=== PATIENT | male | born 1975 | race Caucasian/White ===

== ENCOUNTER 2018-11-22 09:43 | Day surgery (SDC) | END 2018-11-22 15:45 | disposition home or self-care (01) ==

== ENCOUNTER 2019-01-15 09:26 | Inpatient (IN) | payer OTHER ==
[~2019-01-15] VITALS: Ht 172.7 cm; Wt 71.6 kg
[2019-01-15] VITALS (28 sets, daily range): BP systolic 119–162; BP diastolic 63–86; PULSE 62–114; RESP 15–21; Ht 172.7 cm; Wt 71.6 kg
[~2019-01-15 09:26] MED LIST: LACT1CAP17 PO
[2019-01-15] MEDS ORDERED: CEFAZOLIN 2 GM/50 ML (PMX) 50 ML IVPB ONE (09:30)
[2019-01-15] MEDS ORDERED: SOD CHLORIDE 0.9% 1,000 ML IV ONE (09:30)
[2019-01-15] MEDS ORDERED: BUPIVACAINE 0.5%/EPI (SDV) 30 ML INJ ONE (10:12)
[2019-01-15] MEDS ORDERED: PROPOFOL 20 ML ONE (10:37)
[2019-01-15] MEDS ORDERED: MIDAZOLAM 1 MG/ML 2 ML INJ ONE (10:37)
[2019-01-15] MEDS ORDERED: SUCCINYLCHOLINE CHLORIDE 100 MG/5 ML SYG IV ONE (10:37)
[2019-01-15] MEDS ORDERED: ROCURONIUM 50 MG INJ ONE (10:37)
[2019-01-15] MEDS ORDERED: LIDOCAINE 100 MG SYRINGE ONE ×4 (10:37→16:11)
[2019-01-15] MEDS ORDERED: METOCLOPRAMIDE 10 MG INJ ONE (10:38)
[2019-01-15] MEDS ORDERED: ONDANSETRON 4 MG INJ ONE (10:38)
--- NOTE | 2019-01-15 10:43 | HPN ---
Date/Time of Note Date/Time of Note DATE: 01/15/19 TIME: 10:43 Interval H&P Admission Note Pt. seen H&P reviewed: No system changes JAVY PERRY MD Jan 15, 2019 10:43
[2019-01-15] MEDS ORDERED: AMPICILLIN/SULB 3 GM/NS (PMX) 100 ML IVPB ONE (12:30)
[2019-01-15] MEDS ORDERED: ONDANSETRON 4 MG INJ IV PRN ×2 (13:00→15:00)
[2019-01-15] MEDS ORDERED: HYDROmorphONE 1 MG/5 ML IV SYRINGE IV PRN (13:00)
[2019-01-15] MEDS ORDERED: DIPHENHYDRAMINE 50 MG INJ IV PRN (13:00)
[2019-01-15] MEDS ORDERED: METOCLOPRAMIDE 10 MG INJ IV PRN (13:00)
[2019-01-15] MEDS ORDERED: morphine (1 MG/ML) 10ML SYRINGE IV PRN (13:00)
[2019-01-15] MEDS ORDERED: LORAZEPAM 2 MG INJ IV PRN (13:00)
[2019-01-15] MEDS ORDERED: hydrALAzine 20 MG INJ IV PRN (13:00)
[2019-01-15] MEDS ORDERED: MEPERIDINE 25 MG INJ IV PRN (13:00)
[2019-01-15] MEDS ORDERED: LABETALOL HCL 20MG INJ IV PRN (13:00)
[2019-01-15] MEDS ORDERED: FENTAnyl 50 MCG/ML VIAL IV PRN (13:00)
--- NOTE | 2019-01-15 13:00 | PREAC ---
Date/Time of Note Date/Time of Note DATE: 01/15/19 TIME: 12:50 Anesthesia Eval and Record Evaluation Time Pre-Procedure Interview DATE: 01/15/19 TIME: 12:50 Age 43 Sex male NPO: 8 hrs Preoperative diagnosis [place]-vesicular fistula Planned procedure open sigmoid colon resection, lower pelvic anastomosis, colovesicular fistula takedown, possible diverting ostomy, rigid sigmoidoscopy Past Medical History Past Medical History: None Surgery & Anesthesia Issues No known issue Meds Anticoagulation: No Beta Joni within 24 hr: Yes Reason Beta Joni not given: Other Discontinued Scripts Lactobac Cmb #3/Fos/Pantethine (PROBIOTIC & ACIDOPHILUS CAP) 1 Each Capsule, 1 EACH PO DAILY, #30 CAP Prov:HUSSEIN DOUGLAS MD 12/20/15 Current Medications Sodium Chloride 1,000 ml @ 75 mls/hr [id number] ONCE IV Last administered on 01/15/19at 10:18; Admin Dose 75 MLS/HR; Start 01/15/19 at 09:30; Stop 01/15/19 at 22:49 Ampicillin Sodium/ Sulbactam Sodium 100 ml @ 100 mls/hr ONCE ONCE IVPB ; Start 01/15/19 at 12:30; Stop 01/15/19 at 13:29 Meds reviewed: Yes Allergies Coded Allergies: No Known Drug Allergies (Verified Allergy, Unknown, 01/15/19) Allergies Reviewed: Yes Labs/Studies Labs Reviewed: Reviewed by anesthesiologist test: N/A Studies: ECG, CXR Pre-procedure Exam Last vitals Vital Signs Date Temp Pulse Resp B/P (MAP) Pulse Ox O2 O2 Flow FiO2 Time Delivery Rate 01/15/19 98.2 79 16 120/68 98 Room Air 10:10 (85) Airway: Adequate mouth opening, Adequate thyromental dist Mallampati: Mallampati II Teeth: Normal Lung: Normal Heart: Normal ASA Physical Status ASA physical status: 3 Emergency: None Planned Anesthetic General/MAC: ETT, NG/OG Tube Neuraxial: Epidural Planned Pain Management Epidural Pre-operative Attestations Prior to commencing anesthesia and surgery, the patient was re-evaluated, there was verification of: *The patient's identity *The results of appropriate recent lab work and preoperative vital signs *The above evaluation not changing prior to induction *Anesthetic plan, risk benefits, alternative and complications discussed with patient/family; questions answered; patient/family understands, accepts and wishes to proceed. Sarika Lara Jan 15, 2019 13:00
[2019-01-15] MEDS ORDERED: NALOXONE (0.4 MG/ML) INJ IV PRN ×5 (13:30)
[2019-01-15] MEDS ORDERED: GLUCAGON 1 MG INJ ONE (13:33)
[2019-01-15] MEDS ORDERED: BUPIVACAINE 0.25% (MPF) 30 ML INJ ONE (14:08)
[2019-01-15] MEDS ORDERED: FENTAnyl 50 MCG/ML VIAL ONE (14:09)
[2019-01-15] MEDS ORDERED: LIDOCAINE 2% (SDV) 5 ML INJ ONE (14:24)
[2019-01-15] MEDS ORDERED: AMPICILLIN/SULB 3 GM/NS (PMX) 100 ML IVPB SCH ×2 (15:00→18:00)
[2019-01-15] MEDS ORDERED: ACETAMINOPHEN 325 MG TAB PO PRN (15:00)
--- NOTE | 2019-01-15 15:03 | OPR ---
Date/Time of Note Date/Time of Note DATE: 01/15/19 TIME: 14:47 Operative Report Procedure Date: Jan 15, 2019 Preoperative Diagnosis 1. Colovesicular fistula 2. Chronic sigmoid colon diverticulitis Postoperative Diagnosis 1. Colovesicular fistula 2. Chronic sigmoid colon diverticulitis Operation/Procedure Performed 1. Sigmoid colon resection with low pelvic anastomosis 2. Takedown of colovesicular fistula 3. Placement of drain 4. Rigid sigmoidoscopy Surgeon see signature line Vice President For Instruction Aris Smith MD Anesthesia Type: general Anesthesiologist: Sarika Lara Estimated Blood Loss: 50 - 100 ml's Transfusion none Specimen 1. Sigmoid colon 2. Anastomotic donuts Grafts/Implants none Tubes/Drains 19 Japanese round [place] drain Complications none Pt Condition Post Procedure: stable Indications The patient is a 43-year-old male who presented to the office with main complaints of dysuria and fecaluria. The patient had clinical signs and symptoms of chronic diverticulitis with colovesicular fistula. This was confirmed via CT scan of the abdomen and pelvis which showed adherence of the sigmoid colon to the bladder along with pneumaturia. A cystoscopy which was done showed fistula opening within the bladder. Urinary stents were placed. The patient was scheduled for sigmoid colon resection with takedown of colovesicular fistula. All risks and benefits of the procedure including, but not limited to: Wound infection, excessive bleeding, postoperative abscess formation, anastomotic leak, anastomotic stricture, possible need for ostomy, sepsis, , injury to intra-abdominal organs including bilateral ureters, et c. were all explained extensively to the patient in full detail. The patient fully understood and wished to proceed with the procedure. Informed consent and medical clearance were obtained. Patient underwent a bowel prep preoperatively. Procedure Description The patient was brought to the operating room and placed supine on the operating table. Bilateral sequential compression devices were placed on both lower extremities. A dose of broad-spectrum perioperative intravenous antibiotics was given. An epidural was placed by the anesthesiologist and will be documented separately by her. Bilateral ureteral stents were placed by the urologist during an outpatient procedure prior to surgery. After the induction of smooth general endotracheal anesthesia a Mclean catheter was placed under sterile conditions and the patient was positioned in the lithotomy position using Abraham stirrups with all pressure points padded. The anus and distal rectum were irrigated with Betadine. Patient's abdomen and perineum were then prepped and draped in standard surgical fashion. After performance of the surgical timeout supraumbilical midline incision was made and carried down to the suprapubic area using a 10 blade scalpel. Incision was taken down through the skin into the subcutaneous tissues to the level of the anterior rectus fascia using Bovie electrocautery. Anterior rectus fascia was incised and the peritoneum entered atraumatically. Incision was then opened proximally and distally along its length. A Bookwalter retractor was placed for exposure. The small bowel was moved out of the field into the right upper quadrant. There was an adhesion of the small bowel to the area of the sigmoid colon and the bladder. This was lysed. Attention was then turned to the sigmoid colon. An area of thickening was identified adhered to the superior portion of the bladder. A Mclean balloon was identified within the bladder. This appeared to be the area of the colovesicular fistula. It was taken down and using combination of blunt dissection and LigaSure device along with Bovie electrocautery. Once the fistula was taken down at the rest of the sigmoid colon was mobilized along the white line of Toldt from the rectum to the proximal descending colon. The rectum was identified and noted to be healthy. A window was made in the rectal mesentery and the distal sigmoid colon was transected using the Contour stapler. The mesentery was taken with the LigaSure device up to the level of the descending colon. Both the left and right ureteral stents were palpated. The ureters were avoided during the entirety of the procedure. There do not appear to be any diverticula in the descending colon. An area of viable, diverticulum free descending colon was identified for the proximal transection margin. It was transected using a firing of the ISAIAS stapler. A marking stitch was used to nette the superior aspect of the specimen. The mesentery was taken with the LigaSure device. Once completely freed the specimen was passed off the field. There was enough descending colon that reached to the pelvis without tension such that a splenic flexure mobilization did not need to be done. At this point 250 cc of saline was instilled into the bladder to distend it. There was no gross leak identified. The bladder was then decompressed. A pursestring device was applied to the distal descending colon. Dilators were used to dilate the colon after administration of glucagon by the anesthesiologist. The distal colon comfortably fit 25 EEA sizer. The 29 EEA sizer was not comfortably fitting in the distal colon, so we decided to go forward with the 25. The anvil of the 25 EEA stapler was inserted into the distal colon and the pursestring suture was tied down. I then went from below manually dilated the anal canal. Sizers were then placed to further dilate. A 25 EEA stapler was then inserted through the rectum and visualized as the spike of the stapler came through the rectal pouch. The anvil and stapler were then and fired. There was no twisting or tension. Air leak was then performed by instilling saline into the abdominal cavity. I then instilled air via rigid sigmoidoscope. Air leak test was negative. On rigid sigmoidoscopy the anastomosis appeared patent and hemo static. I then re-scrubbed and went from above. Hemostasis was inspected for and noted to be adequate. The abdomen was copiously irrigated with several liters of warm saline. A 19 Japanese round [place] drain was placed in the area of the pelvic anastomosis and brought out through a separate stab wound in the right lower quadrant. The drain was secured in place using 2-0 nylon suture and hooked up to bulb suction. The Bookwalter retractor was then removed. The anterior rectus fascia was reapproximated using a running #1 looped PDS suture. Subcutaneous tissues were irrigated with warm saline. 0.5% Marcaine with epinephrine was injected around the incision site. Incision was then reapproximated using skin peyton. Incision was cleaned and sterile dressings were applied. All counts were correct at the end of the case x2 JAVY PERRY MD Jan 15, 2019 15:03
--- NOTE | 2019-01-15 15:23 | PAC ---
Date/Time of Note Date/Time of Note DATE: 01/15/19 TIME: 15:22 Post-Anesthesia Notes Post-Anesthesia Note Last documented vital signs Vital Signs Date Temp Pulse Resp B/P (MAP) Pulse Ox O2 O2 Flow FiO2 Time Delivery Rate 01/15/19 98.2 79 16 120/68 98 Room Air 10:10 (85) Activity: WNL Respiratory function: WNL Cardiovascular function: WNL Mental status: Baseline Pain reasonably controlled: Yes Hydration appropriate: Yes Nausea/Vomiting absent: Yes Sarika Lara Jan 15, 2019 15:23
[2019-01-15] MEDS: METOCLOPRAMIDE 10 MG INJ IV SCH ×2 (15:28→22:03)
[2019-01-15] MEDS ORDERED: MIDAZOLAM 1 MG/ML 2 ML INJ IV PRN (16:00)
[2019-01-15] MEDS: ACETAMINOPHEN 1000MG/100ML IV 100 ML IVPB SCH ×2 (16:08→23:16)
[2019-01-15] MEDS: FENTAnyl 2MCG/ML-ROPIV 0.2% 100 ML BAG EPI SCH ×2 (17:14→23:17)
[2019-01-15] MEDS: FAMOTIDINE 20 MG INJ IV SCH (22:03)
[2019-01-15] MEDS: LACTATED RINGER'S 1,000 ML IV SCH ×2 (22:10→22:38)
[2019-01-16 00:19] VITALS: BP 123/91; PULSE 91; RESP 18
--- NOTE | 2019-01-16 01:01 | HP ---
DATE OF ADMISSION: 01/15/2019 CHIEF COMPLAINT AND HISTORY OF PRESENT ILLNESS: The patient is a 43-year-old gentleman with a histor y of chronic sigmoid colon diverticulitis, leading to colovesicular fistula. The patient was seen by Dr. Javy Houser as an outpatient and underwent a sigmoid colon resection with low pelvic anastomos is, takedown of colovesicular fistula, placement of drain, and rigid sigmoidoscopy. The patient post operatively had significant pain and is being admitted for further evaluation and management. The pa tient denies history of chest pain or shortness of breath. No history of headache, dizziness, syncop e. No history of focal weakness. No history of leg edema. No history of resting leg pain. No hist ory of paresthesias in any extremity. REVIEW OF SYSTEMS: Other than postoperative pain, rest of review of systems was unremarkable. PAST MEDICAL HISTORY: The patient was seen by Dr. Ocampo and underwent a cystoscopy and transurethral resection of medium size bladder lesion, bilateral retrograde pyelogram, insertion of bilateral uret er stent. Pathology revealed severe chronic cystitis, but no evidence of malignancy. This was done back in 10/2018. PAST SURGICAL HISTORY: None. FAMILY HISTORY: Father had diverticulitis. Mother has had bladder cancer. SOCIAL HISTORY: The patient smokes 1 pack per day. He also smokes marijuana. No history of alcohol abuse. PHYSICAL EXAMINATION: GENERAL: The patient is awake, alert, fairly oriented. VITAL SIGNS: Temperature 98.1, pulse 86, respirations 18, blood pressure 124/63, O2 saturation 98% o n room air. HEENT: No eye discharge or redness. Nose and ears normal. Oropharynx clear. NECK: No mass. CHEST: Fairly clear. CARDIOVASCULAR: S1, S2 normal. No murmur. ABDOMEN: The patient is status post surgery. NEUROLOGIC: The patient is awake, alert, fairly oriented with no gross focal deficit. LABORATORY DATA: WBC 10.5, hemoglobin 14.1, platelet 407. Sodium 141, potassium 4.2, BUN 15, creati nine 0.8. Liver enzymes normal. TSH 1.2. LDL 55. IMPRESSION: 1. Colovesicular fistula. 2. Chronic sigmoid colon diverticulitis. The patient is status post sigmoid colon resection with lo w pelvic anastomosis, takedown of colovesical fistula, placement of drain, and rigid sigmoidoscopy. PLAN: The patient will be admitted on medical floor. The patient will be kept n.p.o. and will be st arted on IV fluid, IV Unasyn as per protocol, IV Pepcid. Will use SCD for DVT prophylaxis. For pain control, the patient will be given IV Tylenol and the patient also has epidural. Further recommenda tion will depend on patient's hospital course. The patient was seen by Dr. Franco awoken from anes thesia standpoint. We will continue to follow him from a medical standpoint. We will do followup la bs and urine culture has been sent perioperatively. We will continue to follow. Dictated By: CESAR MAYO MD AB/NTS Conf#: [id number] DID#: [id number] CC: JAVY HOUSER MD;*EndCC*
[2019-01-16] MEDS: METOCLOPRAMIDE 10 MG INJ IV SCH ×4 (04:20→21:13)
[2019-01-16] MEDS: ACETAMINOPHEN 1000MG/100ML IV 100 ML IVPB SCH ×4 (04:21→21:13)
[2019-01-16 04:33] VITALS: BP 102/67; PULSE 89; RESP 18
[2019-01-16] MEDS: AMPICILLIN/SULB 3 GM/NS (PMX) 100 ML IVPB SCH ×3 (05:39→16:25)
[2019-01-16] MEDS: LACTATED RINGER'S 1,000 ML IV SCH (05:40)
[2019-01-16] MEDS: FENTAnyl 2MCG/ML-ROPIV 0.2% 100 ML BAG EPI SCH ×3 (07:15→21:50)
[2019-01-16 08:01] VITALS: BP 130/73; PULSE 81; RESP 18
[2019-01-16] MEDS: FAMOTIDINE 20 MG INJ IV SCH ×2 (08:42→21:13)
[2019-01-16] MEDS: DOCUSATE SODIUM 100 MG CAP PO SCH ×4 (09:00→21:13)
--- NOTE | 2019-01-16 09:07 | PN ---
Date/Time of Note Date/Time of Note DATE: 01/16/19 TIME: 09:02 Assessment/Plan Lines/Catheters IV Catheter Type (from Nrsg): Peripheral IV Mclean in Place (from Nrsg): Yes Assessment/Plan Assessment/Plan 43-year-old male status post sigmoid colon resection, colovesicular fistula takedown, placement of drain postop day #1 * Advance to sips of clear liquids * Continue epidural for pain control * Out of bed/incentive spirometry/physical therapy * Continue drain * Continue Mclean catheter for at least 10 days Case was discussed with the patient and the nurse at the bedside. Further recommendations will be made based on patient's clinical course. Subjective 24 Hr Interval Summary Complains of abdominal pain which is controlled with IV Tylenol. Epidural is running at 12 mL an hour. Denies nausea. No flatus. Afebrile. Hemodyn amically stable. Drain output 240 cc sanguinous. Exam/Review of Systems Vital Signs Vitals Vital Signs Date Temp Pulse Resp B/P (MAP) Pulse Ox O2 O2 Flow FiO2 Time Delivery Rate 01/16/19 97.7 81 18 130/73 96 08:01 (92) 01/15/19 Room Air 18:30 01/15/19 3.0 17:12 Intake and Output 01/15/19 01/15/19 01/16/19 1414:59 22:59 06:59 IntakeIntake Total 1600 ml 1100 ml 1300 ml OutputOutput Total 100 ml 1105 ml 65 ml BalanceBalance 1500 ml -5 ml 1235 ml Exam Free Text/Dictation GENERAL: Awake, alert, oriented x 3. No acute distress. CARDIOVASCULAR: S1S2, regular rate and rhythm. No murmurs appreciated. RESPIRATORY: Clear to auscultation bilaterally. ABDOMEN: Soft, bowel sounds present, nondistended, appropriate incisional tenderness to palpation. No rebound or guarding. DRESSING: Clean with mild saturation EXTREMITIES: Free range of motion x 4. No cyanosis, edema, or clubbing. Results Result Diagram: 01/16/19 0439 01/16/19 0439 JAVY PERRY MD Jan 16, 2019 09:07
[2019-01-16] MEDS ORDERED: KETOROLAC 15 MG INJ IV STA (12:56)
[2019-01-16] MEDS: DEXTROSE 5%-0.45% NACL 1,000 ML IV SCH ×2 (13:42→19:00)
[2019-01-16 14:45] VITALS: BP 130/70; PULSE 68; RESP 18
[2019-01-16] MEDS ORDERED: KETOROLAC 30 MG INJ IV PRN (16:30)
[2019-01-16] MEDS ORDERED: LORAZEPAM 1 MG TAB PO PRN (17:30)
--- NOTE | 2019-01-16 18:17 | OPPN ---
Date/Time of Note Date/Time of Note DATE: 01/16/19 TIME: 18:04 Anesthesia Follow up Anesthesia Follow up Last documented vital signs Vital Signs Date Temp Pulse Resp B/P (MAP) Pulse Ox O2 O2 Flow FiO2 Time Delivery Rate 01/16/19 98.0 68 18 130/70 96 14:45 (90) 01/15/19 Room Air 18:30 01/15/19 3.0 17:12 Respiratory function: WNL Cardiovascular function: WNL Comments POD1 p major abdominal procedure with subjectively 8/10 pain. Intermittent IV acetaminophen as well as IV ketorolac helpful but not less than 2/10 pain, in abdomen, left more than right. sensation of limited breathing ability secondary abdominal pain. Objectively patient is resting comfortably in bed with some smile. - VSS - catheter site is clean,dry and intact - current infusion of ropivacaine 0.2% with fentanyl 2mcg/ml at 14ccc/h - denies itching, N/V or urinary retention - sensory level to cold swab: T8 right, T12 left A/P okay control of perioperative pain with L2/3 lumbar epidural cath. 1. In light of one sided ness with position patient for 1-2hrs left lateral decubitus and encourge to rest on left side to gift gravity a chance to help with distribtuion to left side. 2. Continue at 14cc/h, consider increasing to 16cc/h. 3. Meanwhile increase ketoroloac to 30mg q6hr prn more than 2-3/10 pain. 4. Lorazepam prn added for helping to reduce anxiety component of pain - which was successfully done in PACU yesterday. 5. Will reevaluate later tonight. R/B/A of redoing vs leaving epidural cath in place discussed. 6. Will follow patient with primary team. Sarika Damico Jan 16, 2019 18:14
--- NOTE | 2019-01-16 18:57 | PN ---
DATE: 01/16/2019 SUBJECTIVE: Follow up on recent surgery for colovesical fistula. The patient was seen by Dr. Perry and diet has been advanced to clear liquid. The patient's postoperative pain is controlled with epid ural. The patient is being followed by anesthesiologist. The patient denies any chest pain or short ness of breath. OBJECTIVE: VITAL SIGNS: Temperature 98, pulse 60, respirations 18, blood pressure 130/70, O2 saturation 96 on r oom air. HEENT: No eye discharge or redness. Oropharynx is grossly negative. NECK: No mass. CHEST: Fairly clear. CARDIOVASCULAR: S1, S2 normal. ABDOMEN: The patient is status post surgery. EXTREMITIES: No leg edema. NEUROLOGIC: The patient is awake, alert, fairly oriented. LABORATORY DATA: Done this morning, WBC 10.8, hemoglobin 12.6, platelet 237. Chemistry unremarkable . Magnesium 1.7. IMPRESSION: Colovesicular fistula due to chronic sigmoid colon diverticulitis, status post surgery. Continue postoperative care as per Dr. Perry. The patient will need Mclean catheter for at least 10 more days. Continue IV Pepcid for gastrointestinal prophylaxis and SCD for deep venous thrombosis pr ophylaxis. Dictated By: CESAR MAYO MD AB/NTS Conf#: [id number] DID#: [id number] CC: JAVY PERRY MD;*EndCC*
[2019-01-16] MEDS ORDERED: KETOROLAC 15 MG INJ IV PRN (19:00)
[2019-01-16 20:51] VITALS: BP 120/72; PULSE 85; RESP 18
[2019-01-17] MEDS: DEXTROSE 5%-0.45% NACL 1,000 ML IV SCH ×2 (00:34→09:16)
[2019-01-17 02:06] VITALS: BP 102/58; PULSE 70; RESP 18
[2019-01-17] MEDS: METOCLOPRAMIDE 10 MG INJ IV SCH ×4 (03:21→22:31)
[2019-01-17] MEDS: ACETAMINOPHEN 1000MG/100ML IV 100 ML IVPB SCH ×2 (03:21→09:00)
[2019-01-17] MEDS: FENTAnyl 2MCG/ML-ROPIV 0.2% 100 ML BAG EPI SCH ×3 (04:14→17:16)
[2019-01-17 07:49] VITALS: BP 104/62; PULSE 71; RESP 18
[2019-01-17] MEDS: DOCUSATE SODIUM 100 MG CAP PO SCH ×3 (08:58→22:29)
[2019-01-17] MEDS: FAMOTIDINE 20 MG INJ IV SCH ×2 (08:59→20:27)
--- NOTE | 2019-01-17 10:54 | OPPN ---
Date/Time of Note Date/Time of Note DATE: 01/17/19 TIME: 10:48 Anesthesia Follow up Anesthesia Follow up Last documented vital signs Vital Signs Date Temp Pulse Resp B/P (MAP) Pulse Ox O2 O2 Flow FiO2 Time Delivery Rate 01/17/19 17 10:43 01/17/19 97.8 71 104/62 97 Room Air 07:49 (76) 01/15/19 3.0 17:12 Respiratory function: WNL Cardiovascular function: WNL Comments POD 2 post major abdomiinal procedure. Pain 0-2 while resting. Gradually restarting on left side if not lying flat for hours or on right side. ATC Acetaminophen and prn Ketorolac denies itching / N / V O: VSS cath site clean / dry / intact T 8 right and T 11 on left to cold / wet swab Ropivacaine 0.2% plus Fentanyl 2mcg/cc at 14 cc/h A/P gravity dependent excellent pain control via lumbar epidural cath / infusion. 1. Continue current management. 2. allow careful ambulation with 2 assistants at any time 3. discuss with surgeon / primary team about timing of cath removal Sarika Lara Jan 17, 2019 10:54
[2019-01-17 14:09] VITALS: BP 122/72; PULSE 63; RESP 18
--- NOTE | 2019-01-17 14:44 | PN ---
Date/Time of Note Date/Time of Note DATE: 01/17/19 TIME: 14:39 Assessment/Plan VTE Prophylaxis Risk score (from Ns)>0 risk: 5 SCD applied (from Ns): Yes Pharmacological prophylaxis: NA/contraindicated Pharm contraindication: surgical contra Lines/Catheters IV Catheter Type (from Nrsg): Peripheral IV Urinary Cath still in place: Yes Reason Cath still needed: urinary retention Assessment/Plan Hospital Course Patient is awake alert, pain is well controlled on epidural analgesia, patient started on clear liquid diet tolerates it well. Encouraged to use incentive spirometer. Continue monitor DENAE drainage. Potassium is 3.2, will replace potassium. 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 Houser on 01/15/19. Advance diet per surgery, continue pain management, incentive spirometer. Further recommendations based on clinical course. Plan of care discussed with Dr. Benavides. Result Diagram: 01/17/19 0422 01/17/19 0422 Results 24hrs Laboratory Tests Test 01/17/19 04:22 White Blood Count 8.5 # Red Blood Count 4.26 L Hemoglobin 12.6 L Hematocrit 37.7 L Mean Corpuscular Volume 88.5 Mean Corpuscular Hemoglobin 29.6 Mean Corpuscular Hemoglobin Concent 33.4 Red Cell Distribution Width 13.0 Platelet Count 223 Mean Platelet Volume 9.0 Immature Granulocytes % 0.400 Neutrophils % 67.0 Lymphocytes % 21.2 Monocytes % 8.9 Eosinophils % 2.1 Basophils % 0.4 Nucleated Red Blood Cells % 0.0 Immature Granulocytes # 0.030 Neutrophils # 5.7 Lymphocytes # 1.8 Monocytes # 0.8 Eosinophils # 0.2 Basophils # 0.0 Nucleated Red Blood Cells # 0.0 Sodium Level 139 Potassium Level 3.2 L Chloride Level 103 Carbon Dioxide Level 27 Anion Gap 9 Blood Urea Nitrogen 3 L Creatinine 0.76 Est Glomerular Filtrat Rate mL/min > 60 Glucose Level 106 Calcium Level 8.0 L Exam/Review of Systems Exam Vitals Vital Signs Date Temp Pulse Resp B/P (MAP) Pulse Ox O2 O2 Flow FiO2 Time Delivery Rate 01/17/19 97.6 63 18 122/72 98 Room Air 14:09 (89) 01/15/19 3.0 17:12 Intake and Output 01/16/19 01/16/19 01/17/19 1515:00 23:00 07:00 IntakeIntake Total 1200 ml 600 ml 1300 ml OutputOutput Total 1305 ml 1850 ml 30 ml BalanceBalance -105 ml -1250 ml 1270 ml Constitutional: alert, oriented Head: normocephalic Respiratory: clear to auscultation Cardiovascular: nl pulses Gastrointestinal: soft, other (Status post surgery, DENAE drain) Musculoskeletal: nl extremities to inspection Extremities: normal pulses Neurological: nl mental status Results Results 24hrs Laboratory Tests Test 01/17/19 04:22 White Blood Count 8.5 # Red Blood Count 4.26 L Hemoglobin 12.6 L Hematocrit 37.7 L Mean Corpuscular Volume 88.5 Mean Corpuscular Hemoglobin 29.6 Mean Corpuscular Hemoglobin Concent 33.4 Red Cell Distribution Width 13.0 Platelet Count 223 Mean Platelet Volume 9.0 Immature Granulocytes % 0.400 Neutrophils % 67.0 Lymphocytes % 21.2 Monocytes % 8.9 Eosinophils % 2.1 Basophils % 0.4 Nucleated Red Blood Cells % 0.0 Immature Granulocytes # 0.030 Neutrophils # 5.7 Lymphocytes # 1.8 Monocytes # 0.8 Eosinophils # 0.2 Basophils # 0.0 Nucleated Red Blood Cells # 0.0 Sodium Level 139 Potassium Level 3.2 L Chloride Level 103 Carbon Dioxide Level 27 Anion Gap 9 Blood Urea Nitrogen 3 L Creatinine 0.76 Est Glomerular Filtrat Rate mL/min > 60 Glucose Level 106 Calcium Level 8.0 L Medications Medication Current Medications Naloxone HCl (Narcan) 0.2 mg Q2M PRN IV .RESP RATE; Start 01/15/19 at 13:30 Acetaminophen (Tylenol Tab) 650 mg Q6H PRN PO MILD PAIN(1-3)OR ELEVATED TEMP; Start 01/15/19 at 15:00 Metoclopramide HCl (Reglan) 10 mg Q6H IV Last administered on 01/17/19at 08:59; Admin Dose 10 MG; Start 01/15/19 at 15:00 Ondansetron HCl (Zofran Inj) 4 mg Q6H PRN IV NAUSEA AND/OR VOMITING; Start 01/15/19 at 15:00 Famotidine (Pepcid Iv) 20 mg Q12 IV Last administered on 01/17/19at 08:59; Admin Dose 20 MG; Start 01/15/19 at 21:00 Naloxone HCl (Narcan) 0.2 mg Q2M PRN IV .RESP RATE; Start 01/15/19 at 13:30 Dextrose/Sodium Chloride 1,000 ml @ 100 mls/hr Q10H IV Last administered on 01/17/19at 09:16; Admin Dose 100 MLS/HR; Start 01/16/19 at 09:00 Docusate Sodium (Colace) 100 mg TID PO Last administered on 01/16/19at 21:13; Admin Dose 100 MG; Start 01/16/19 at 09:00 Acetaminophen 100 ml @ 400 mls/hr Q6H IVPB Last administered on 01/17/19 09:00; Admin Dose 400 MLS/HR; Start 01/16/19 at 15:00; Stop 01/17/19 at 14:59 Fentanyl/ Ropivacaine 100 ml EPIDURAL (PCEA) EPI Last administered on 01/17/19at 10:40; Admin Dose 100 ML; Start 01/15/19 at 13:30 Ketorolac Tromethamine (Toradol) 15 mg Q6H PRN IV PAIN; Start 01/16/19 at 19 :00; Stop 01/19/19 at 18:59 Lorazepam (Ativan) 1 mg Q4H PRN PO AGITATION/ANXIETY; Start 01/16/19 at 17:30 Ketorolac Tromethamine (Toradol) 30 mg Q6H PRN IV PAIN LEVEL 1-3; Start 01/16/19 at 16:30; Stop 01/19/19 at 16:29 ALFRED CORRAL Jan 17, 2019 14:44
[2019-01-17] MEDS ORDERED: HYDROCODONE/APAP (5/325) TAB PO PRN (15:00)
--- NOTE | 2019-01-17 15:04 | PN ---
Date/Time of Note Date/Time of Note DATE: 01/17/19 TIME: 15:02 Assessment/Plan Lines/Catheters IV Catheter Type (from Nrsg): Peripheral IV Mclean in Place (from Nrsg): Yes Assessment/Plan Assessment/Plan 43-year-old male status post sigmoid colon resection, colovesicular fistula takedown, placement of drain postop day #2 * Advance to low residual diet * DC epidural * Switch to p.o. pain control with IV for breakthrough * Out of bed/incentive spirometry/physical therapy * Continue drain * Continue Mclean catheter for at least 10 days Case was discussed with the patient and the nurse at the bedside. Further recommendations will be made based on patient's clinical course. Subjective 24 Hr Interval Summary Feeling better. Abdominal pain is controlled. Tolerating clear liquids. Denies nausea. Passing flatus. Afebrile. Drain output 135 cc looking more serosanguineous. Exam/Review of Systems Vital Signs Vitals Vital Signs Date Temp Pulse Resp B/P (MAP) Pulse Ox O2 O2 Flow FiO2 Time Delivery Rate 01/17/19 97.6 63 18 122/72 98 Room Air 14:09 (89) 01/15/19 3.0 17:12 Intake and Output 01/16/19 01/16/19 01/17/19 1515:00 23:00 07:00 IntakeIntake Total 1200 ml 600 ml 1300 ml OutputOutput Total 1305 ml 1850 ml 30 ml BalanceBalance -105 ml -1250 ml 1270 ml Exam Free Text/Dictation GENERAL: Awake, alert, oriented x 3. No acute distress. CARDIOVASCULAR: S1S2, regular rate and rhythm. No murmurs appreciated. RESPIRATORY: Clear to auscultation bilaterally. ABDOMEN: Soft, bowel sounds present, nondistended, appropriate incisional tenderness to palpation. No rebound or guarding. INCISION: Clean, dry, intact EXTREMITIES: Free range of motion x 4. No cyanosis, edema, or clubbing. Results Result Diagram: 01/17/192 01/17/19 0422 JAVY PERRY MD Jan 17, 2019 15:04
[2019-01-17] MEDS: 1/2 NS + KCL 20 MEQ 1,000 ML IV SCH (15:27)
[2019-01-17] MEDS ORDERED: POTASSIUM CHLORIDE 100 ML IVPB ONE (16:00)
[2019-01-17] MEDS: HYDROCODONE/APAP (5/325) TAB PO PRN ×2 (18:42→23:44)
[2019-01-17 19:40] VITALS: BP 149/79; PULSE 72; RESP 18
[2019-01-18 02:30] VITALS: BP 128/76; PULSE 70; RESP 18
[2019-01-18] MEDS: METOCLOPRAMIDE 10 MG INJ IV SCH ×4 (03:25→21:07)
[2019-01-18] MEDS: HYDROCODONE/APAP (5/325) TAB PO PRN ×3 (06:13→19:01)
[2019-01-18] MEDS: 1/2 NS + KCL 20 MEQ 1,000 ML IV SCH (07:26)
[2019-01-18 07:32] VITALS: BP 131/71; PULSE 66; RESP 18
[2019-01-18] MEDS: DOCUSATE SODIUM 100 MG CAP PO SCH ×3 (09:06→21:07)
--- NOTE | 2019-01-18 09:06 | PN ---
Date/Time of Note Date/Time of Note DATE: 01/18/19 TIME: 09:03 Assessment/Plan Lines/Catheters IV Catheter Type (from Nrsg): Peripheral IV Mclean in Place (from Nrsg): Yes Assessment/Plan Assessment/Plan 43-year-old male status post sigmoid colon resection, colovesicular fistula takedown, placement of drain postop day #3 * Progressing well * Continue drain * Continue Mclean catheter for at least 10 days * Possible discharge home in a.m. if continues to progress. Case was discussed with the patient and the nurse at the bedside. Further recommendations will be made based on patient's clinical course. Subjective 24 Hr Interval Summary Feeling much better. Abdominal pain is controlled. Tolerating low residual diet. Passing flatus. Had a few bowel movements yesterday. Afebrile. Drain output 60 cc serosanguineous. Exam/Review of Systems Vital Signs Vitals Vital Signs Date Temp Pulse Resp B/P (MAP) Pulse Ox O2 O2 Flow FiO2 Time Delivery Rate 01/18/19 98.6 66 18 131/71 96 Room Air 07:32 (91) 01/15/19 3.0 17:12 Intake and Output 01/17/19 01/17/19 01/18/19 1515:00 23:00 07:00 IntakeIntake Total 100 ml 940 ml 575 ml OutputOutput Total 3250 ml 1930 ml 2130 ml BalanceBalance -3150 ml -990 ml -1555 ml Exam Free Text/Dictation GENERAL: Awake, alert, oriented x 3. No acute distress. CARDIOVASCULAR: S1S2, regular rate and rhythm. No murmurs appreciated. RESPIRATORY: Clear to auscultation bilaterally. ABDOMEN: Soft, bowel sounds present, nondistended, appropriate incisional tender ness to palpation which is improving. No rebound or guarding. INCISION: Clean, dry, intact EXTREMITIES: Free range of motion x 4. No cyanosis, edema, or clubbing. Results Result Diagram: 01/18/19 0433 01/18/19 0433 JAVY PERRY MD Jan 18, 2019 09:06
[2019-01-18] MEDS: FAMOTIDINE 20 MG INJ IV SCH (09:10)
[2019-01-18 14:36] VITALS: BP 123/66; PULSE 79; RESP 18
--- NOTE | 2019-01-18 16:53 | PN ---
Date/Time of Note Date/Time of Note DATE: 01/18/19 TIME: 16:52 Assessment/Plan VTE Prophylaxis Risk score (from Ns)>0 risk: 3 SCD applied (from Ns): Yes Pharmacological prophylaxis: NA/contraindicated Pharm contraindication: surgical contra Lines/Catheters IV Catheter Type (from Nrsg): Peripheral IV Urinary Cath still in place: Yes Reason Cath still needed: urinary retention, other (indicate) Assessment/Plan Hospital Course Epidural d/morris, pain is well controlled, pt denies nausea, continue diet per surgery, monitor DENAE drain output, +Flaus. +BM, continue Mclean, if pt continues to improve anticipate d/c home tomorrow. 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 Houser on 01/15/19. Advance diet per surgery, continue pain management, incentive spirometer. Further recommendations based on clinical course. Plan of care discussed with Dr. Benavides. Result Diagram: 01/18/19 0433 01/18/19 0433 Results 24hrs Laboratory Tests Test 01/18/19 04:33 White Blood Count 8.5 Red Blood Count 4.48 L Hemoglobin 13.1 L Hematocrit 39.6 L Mean Corpuscular Volume 88.4 Mean Corpuscular Hemoglobin 29.2 Mean Corpuscular Hemoglobin Concent 33.1 Red Cell Distribution Width 12.7 Platelet Count 242 Mean Platelet Volume 8.9 Immature Granulocytes % 0.200 Neutrophils % 58.6 Lymphocytes % 28.0 Monocytes % 8.5 Eosinophils % 4.3 Basophils % 0.4 Nucleated Red Blood Cells % 0.0 Immature Granulocytes # 0.020 Neutrophils # 5.0 Lymphocytes # 2.4 Monocytes # 0.7 Eosinophils # 0.4 Basophils # 0.0 Nucleated Red Blood Cells # 0.0 Sodium Level 140 Potassium Level 3.5 Chloride Level 106 Carbon Dioxide Level 28 Anion Gap 6 Blood Urea Nitrogen 4 L Creatinine 0.69 Est Glomerular Filtrat Rate mL/min > 60 Glucose Level 93 Calcium Level 8.4 Exam/Review of Systems Exam Vitals Vital Signs Date Temp Pulse Resp B/P (MAP) Pulse Ox O2 O2 Flow FiO2 Time Delivery Rate 01/18/19 97.8 79 18 123/66 95 Room Air 14:36 (85) 01/15/19 3.0 17:12 Intake and Output 01/17/19 01/17/19 01/18/19 1414:59 22:59 06:59 IntakeIntake Total 100 ml 940 ml 575 ml OutputOutput Total 3250 ml 1930 ml 2130 ml BalanceBalance -3150 ml -990 ml -1555 ml Exam Constitutional: alert, oriented Respiratory: clear to auscultation Cardiovascular: nl pulses Gastrointestinal: soft, other (Status post surgery, DENAE drain) Musculoskeletal: nl extremities to inspection Extremities: normal pulses Neurological: nl mental status Results Results 24hrs Laboratory Tests Test 01/18/19 04:33 White Blood Count 8.5 Red Blood Count 4.48 L Hemoglobin 13.1 L Hematocrit 39.6 L Mean Corpuscular Volume 88.4 Mean Corpuscular Hemoglobin 29.2 Mean Corpuscular Hemoglobin Concent 33.1 Red Cell Distribution Width 12.7 Platelet Count 242 Mean Platelet Volume 8.9 Immature Granulocytes % 0.200 Neutrophils % 58.6 Lymphocytes % 28.0 Monocytes % 8.5 Eosinophils % 4.3 Basophils % 0.4 Nucleated Red Blood Cells % 0.0 Immature Granulocytes # 0.020 Neutrophils # 5.0 Lymphocytes # 2.4 Monocytes # 0.7 Eosinophils # 0.4 Basophils # 0.0 Nucleated Red Blood Cells # 0.0 Sodium Level 140 Potassium Level 3.5 Chloride Level 106 Carbon Dioxide Level 28 Anion Gap 6 Blood Urea Nitrogen 4 L Creatinine 0.69 Est Glomerular Filtrat Rate mL/min > 60 Glucose Level 93 Calcium Level 8.4 Medications Medication Current Medications Naloxone HCl (Narcan) 0.2 mg Q2M PRN IV .RESP RATE; Start 01/15/19 at 13:30 Acetaminophen (Tylenol Tab) 650 mg Q6H PRN PO MILD PAIN(1-3)OR ELEVATED TEMP; Start 01/15/19 at 15:00 Metoclopramide HCl (Reglan) 10 mg Q6H IV Last administered on 01/18/19at 03:25; Admin Dose 10 MG; Start 01/15/19 at 15:00 Ondansetron HCl (Zofran Inj) 4 mg Q6H PRN IV NAUSEA AND/OR VOMITING; Start 01/15/19 at 15:00 Docusate Sodium (Colace) 100 mg TID PO Last administered on 01/18/19at 14:45; Admin Dose 100 MG; Start 01/16/19 at 09:00 Lorazepam (Ativan) 1 mg Q4H PRN PO AGITATION/ANXIETY; Start 01/16/19 at 17:30 Acetaminophen/ Hydrocodone Bitart ([place] (5/325)) 1 tab Q4H PRN PO MODERATE PAIN LEVEL 4-6 Last administered on 01/18/19at 14:45; Admin Dose 1 TAB; Start 01/17/19 at 15:00 Acetaminophen/ Hydrocodone Bitart ([place] (5/325)) 2 tab Q4H PRN PO SEVERE PAIN LEVEL 7-10 Last administered on 01/18/19at 10:11; Admin Dose 2 TAB; Start 01/17/19 at 15:00 Famotidine (Pepcid) 20 mg Q12 PO ; Start 01/18/19 at 21:00 ALFRED CORRAL Jan 18, 2019 16:53
[2019-01-18 20:01] VITALS: BP 137/85; PULSE 76; RESP 18
[2019-01-18] MEDS: FAMOTIDINE 20 MG TAB PO SCH (21:08)
[2019-01-19] MEDS: HYDROCODONE/APAP (5/325) TAB PO PRN ×2 (00:20→09:13)
[2019-01-19 02:50] VITALS: BP 124/80; PULSE 68; RESP 18
[2019-01-19] MEDS: METOCLOPRAMIDE 10 MG INJ IV SCH ×2 (03:45→08:58)
[2019-01-19 07:52] VITALS: BP 121/64; PULSE 72; RESP 19
[2019-01-19] MEDS: FAMOTIDINE 20 MG TAB PO SCH (08:58)
[2019-01-19] MEDS: DOCUSATE SODIUM 100 MG CAP PO SCH (08:58)
--- NOTE | 2019-01-19 09:11 | PN ---
Date/Time of Note Date/Time of Note DATE: 01/19/19 TIME: 09:08 Assessment/Plan Lines/Catheters IV Catheter Type (from Nrs): Peripheral IV Mclean in Place (from Nrs): Yes Assessment/Plan Assessment/Plan 43-year-old male status post sigmoid colon resection, colovesicular fistula takedown, placement of drain postop day #4 * Drain removed * Surgically stable for discharge home if medically cleared * Mclean will be removed as outpatient after cystogram * Follow up in office in 1 week Case was discussed with the patient and the nurse at the bedside. Subjective 24 Hr Interval Summary Doing well. Tolerating diet. Passing flatus with BMs. Abdominal pain controlled. Afebrile. Drain output 40cc serous. Exam/Review of Systems Vital Signs Vitals Vital Signs Date Temp Pulse Resp B/P (MAP) Pulse Ox O2 O2 Flow FiO2 Time Delivery Rate 01/19/19 98.2 72 19 121/64 98 07:52 (83) 01/18/19 Room Air 14:36 01/15/19 3.0 17:12 Intake and Output 01/18/19 01/18/19 01/19/19 1515:00 23:00 07:00 IntakeIntake Total 440 ml 300 ml OutputOutput Total 2100 ml 1130 ml 1610 ml BalanceBalance -1660 ml -830 ml -1610 ml Exam Free Text/Dictation GENERAL: Awake, alert, oriented x 3. No acute distress. CARDIOVASCULAR: S1S2, regular rate and rhythm. No murmurs appreciated. RESPIRATORY: Clear to auscultation bilaterally. ABDOMEN: Soft, bowel sounds present, nondistended, appropriate incisional tenderness to palpation which is improving. No rebound or guarding. INCISION: Clean, dry, intact EXTREMITIES: Free range of motion x 4. No cyanosis, edema, or clubbing. Results Result Diagram: 01/19/19 0439 01/19/19 0439 JAVY PERRY MD Jan 19, 2019 09:11
--- NOTE | 2019-01-19 10:57 | PDOCDIS ---
Discharge Instructions CONDITION [id number] Patient Condition: [id number] Stable HOME CARE INSTRUCTIONS: [id number] Diet Instructions: [id number] low residue [id number] Special Diet: Ynbdq7v low residue/low fiber ACTIVITY: [id number] Activity Restrictions: [id number] Slowly Increase Activity Rest between Activity Avoid heavy lifting Do not Drive Do not operate Machinery Avoid Heavy Housework FOLLOW UP/APPOINTMENTS Follow-up Plan Fu with PMD x 1 week FU with surgeon as recommended Call 911 or go to the nearest hospital if symptoms get worse-patient verbalized understanding discharge instructions. dw staff CHAYA PEREZ Jan 19, 2019 10:57
--- NOTE | 2019-01-19 10:58 | DS ---
Date/Time of Note Date/Time of Note DATE: 01/19/19 TIME: 10:58 Discharge Summary Admission/Discharge Info Admit Date/Time Jan 15, 2019 at 09:26 Discharge Date/Time Patient Condition: Stable Home Meds Discontinued Scripts Lactobac Cmb #3/Fos/Pantethine (PROBIOTIC & ACIDOPHILUS CAP) 1 Each Capsule, 1 EACH PO DAILY, #30 CAP Prov:HUSSEIN DOUGLAS MD 12/20/15 Follow-up Plan Fu with PMD x 1 week FU with surgeon as recommended Call 911 or go to the nearest hospital if symptoms get worse-patient verbalized understanding discharge instructions. staff Primary Care Provider Arnulfo Olvera MD Pending Labs Laboratory Tests Test 01/19/19 04:39 White Blood Count 9.4 10^3/ul (4.8-10.8) Red Blood Count 4.87 10^6/ul (4.70-6.10) Hemoglobin 14.5 g/dl (14.0-18.0) Hematocrit 43.0 % (42.0-52.0) Mean Corpuscular Volume 88.3 fl (82.0-101.0) Mean Corpuscular Hemoglobin 29.8 pg (29.0-33.0) Mean Corpuscular Hemoglobin Concent 33.7 g/dl (32.0-37.0) Red Cell Distribution Width 13.0 % (11.5-14.5) Platelet Count 277 10^3/UL (140-415) Mean Platelet Volume 9.1 fl (7.4-10.4) Immature Granulocytes % 0.300 % (0.001-0.429) Neutrophils % 57.5 % (39.0-77.0) Lymphocytes % 26.9 % (15.0-51.0) Monocytes % 8.8 % (0.0-11.0) Eosinophils % 6.2 % (0.0-7.0) Basophils % 0.3 % (0.0-2.0) Nucleated Red Blood Cells % 0.0 /100WBC (0.0-0.0) Immature Granulocytes # 0.030 10^3/ul (0.0-0.031) Neutrophils # 5.4 10^3/ul (1.6-7.5) Lymphocytes # 2.5 10^3/ul (0.8-2.9) Monocytes # 0.8 10^3/ul (0.3-0.9) Eosinophils # 0.6 10^3/ul (0.0-0.5) Basophils # 0.0 10^3/ul (0.0-0.1) Nucleated Red Blood Cells # 0.0 10^3/ul (0.0-0.0) Sodium Level 141 mmol/L (135-144) Potassium Level 3.7 mmol/L (3.5-5.1) Chloride Level 107 mmol/L (97-110) Carbon Dioxide Level 30 mmol/L (21-31) Anion Gap 4 (5-13) Blood Urea Nitrogen 10 mg/dl (7-20) Creatinine 0.86 mg/dl (0.61-1.24) Est Glomerular Filtrat Rate mL/min > 60 mL/min (>60) Glucose Level 90 mg/dl (70-220) Calcium Level 8.9 mg/dl (8.4-10.2) CHAYA PEREZ Jan 19, 2019 10:58
== END 2019-01-19 13:50 | disposition home or self-care (01) | DRG 654 ==
LOC: REC 09:26 → MS1 17:32
PROVIDERS: ADMIT Surgery; ATTEND Surgery
PROC: 0DBN0ZZ Excision of Sigmoid Colon, Open Approach (ICD-10-PCS; 2019-01-15)
PROC: 0DJD8ZZ Inspection of Lower Intestinal Tract, Via Natural or Artificial Opening Endoscopic (ICD-10-PCS; 2019-01-15)
PROC: 0TBB0ZZ Excision of Bladder, Open Approach (ICD-10-PCS; principal; 2019-01-15 11:30)
DX: N32.1 Vesicointestinal fistula (principal); K57.32 Diverticulitis of large intestine without perforation or abscess without bleeding
CPT/HCPCS: 80048; 83735; 85025; 86850; 86900; 86901; 87086; 88307; 97116; 97161; 97530; J0131; J0295; J0690; J1610; J1885; J2001; J2175; J2250; J2405; J2765; J3010; J3480; J7030; J7042; J7120